=== PATIENT | male | born 1995 | race Caucasian/White ===

== ENCOUNTER 2018-09-19 11:50 | Emergency (ER) | payer SELFPAY ==
[~2018-09-19] VITALS: Ht 182.9 cm; Wt 69.7 kg
[2018-09-19 12:01] VITALS: BP 123/74
== END 2018-09-19 12:14 | disposition home or self-care (01) ==
LOC: ED 12:07
DX: K02.9 Dental caries, unspecified (principal)
CPT/HCPCS: 99283

== ENCOUNTER 2018-11-14 15:09 | Emergency (ER) | payer BC ==
[~2018-11-14] VITALS: Ht 182.9 cm; Wt 67.0 kg
[2018-11-14 15:23] VITALS: BP 126/47
[2018-11-14] MEDS ORDERED: IBUPROFEN 200 MG TABLET ONE (15:38)
[2018-11-14] MEDS ORDERED: IBUPROFEN 600 MG TABLET PO ONE (16:00)
== END 2018-11-14 16:14 | disposition home or self-care (01) ==
LOC: ED 16:05
DX: S00.33XA Contusion of nose, initial encounter (principal); F17.200 Nicotine dependence, unspecified, uncomplicated; X58.XXXA Exposure to other specified factors, initial encounter; Y93.89 Activity, other specified; Y92.69 Other specified industrial and construction area as the place of occurrence of the external cause; Y99.8 Other external cause status
CPT/HCPCS: 70160; 99283